=== PATIENT | female | born 1980 | race Caucasian/White ===

== ENCOUNTER → 2023-07-12 12:37 | Outpatient (REF) | payer BC, SELFPAY | LOC: WDC 12:37 | PROVIDERS: ATTENDING PHYSICIAN Obstetrics & Gynecology Gynecology; FAMILY PHYSICIAN Nurse Practitioner Adult Health | DX: Z12.31 Encounter for screening mammogram for malignant neoplasm of breast (principal) | CPT/HCPCS: 77063; 77067 ==

== ENCOUNTER → 2024-08-24 19:04 | Outpatient (REF) | payer BC, SELFPAY | LOC: WDC 19:04 | PROVIDERS: ATTENDING PHYSICIAN Obstetrics & Gynecology Gynecology; FAMILY PHYSICIAN Nurse Practitioner Adult Health | DX: Z12.39 Encounter for other screening for malignant neoplasm of breast (principal); Z12.31 Encounter for screening mammogram for malignant neoplasm of breast | CPT/HCPCS: 77063; 77067 ==

== ENCOUNTER 2024-11-06 06:02 | Day surgery (SDC) | payer BC, SELFPAY ==
--- NOTE | 2024-11-05 10:58 | HP.FOC2 ---
Focused History & Physical
Chief Complaint
HPI:
Chief Complaint: Abdominal pain and gallstones
HPI / Indication for Planned Procedure: Patient is a 44-year-old female recently seen in outpatient surgical consultation for evaluation of gallstones in the setting of acute abdominal pain prompting emergency department evaluation at an outside
hospital 06/24/2024. She was visiting friends in [place] when she awoke with bandlike epigastric abdominal pain rating towards her back. She was found to have gallstones and mildly elevated LFTs. She has had 1 mild recurrent episodes since. CT
imaging confirmed prominent gallbladder with large stone in the gallbladder body down towards the neck measuring over 2.5 cm in diameter.
After discussions regarding treatment options patient presents for cholecystectomy
Relevant Past Medical History: Other (History of Lyme's disease, seasonal allergies, depression/anxiety, obesity on Wegovy)
Relevant Social History: Negative
Relevant Family History: Negative
Relevant Past Surgical History: Positive for (Tonsils, abdominoplasty)
Review of Systems
Review of Pertinent Systems: All Systems Negative
Medication
See Medication form for detailed medications: Yes
Medication List (including Herbals & OTC):
Control 1 tab PO DAILY 10/30/24
duloxetine 60 mg capsule,delayed release 60 mg PO DAILY 10/30/24
fexofenadine 60 mg tablet 60 mg PO DAILY 10/30/24
fiber 1 dose PO DAILY 10/30/24
semaglutide (weight loss) 2.4 mg/0.75 mL subcutaneous pen injector (Wegovy) 2.4 mg SC QWEEK 10/30/24
Medications Reviewed: Yes
Allergies and Reactions
Patient has Allergies: Yes
Noted Allergies and Reactions:
Allergy/AdvReac Type Severity Reaction Status Date / Time
latex Allergy skin Verified 10/30/24 13:33
irritation
Penicillins Allergy can't Verified 10/30/24 13:33
breath,
rash
Pertinent Physical Exam
All Other Systems: Negative
Head/Neck: Normal
Lungs: Normal
Heart: Normal
Abdomen: Normal
Extremities: Normal
Neurological: Normal
Diagnosis / Assessment
44-year-old female with history of symptomatic cholelithiasis/biliary colic presenting for cholecystectomy
Plan / Procedure
Laparoscopic cholecystectomy with cholangiogram
Anesthesia/Sedation to be done by Anesthesia Provider: Yes
[2024-11-06] VITALS (11 sets, daily range): BP systolic 110–138; BP diastolic 71–83; BMI 30.1
[2024-11-06] MEDS: TYLENOL 1000 MG PO (06:33)
--- NOTE | 2024-11-06 06:45 | W.SUR.PREOP ---
Pre-Operative Surgical Note
-
I have examined this patient prior to the performance of the scheduled procedure.
The patient's condition is unchanged from the time of the current History and
Physical and the patient is able to undergo the scheduled procedure.
[2024-11-06] MEDS: NORMOSOL-R/PLASMALYTE-A 1000 IV (06:46)
--- NOTE | 2024-11-06 08:33 | W.IMMPOSTOP ---
Addendum entered and electronically signed by Praveen Marks MD 11/06/24 08:54:
#[id number]
Original Note:
Surgical Immed Post Op Note
-
Primary Surgeon: Praveen Marks MD
Assisting Surgeon: Linda Walls PA-c
Pre-op Diagnosis: Symptomatic cholelithiasis
Post-op Diagnosis: Symptomatic cholelithiasis, possible choledocholithiasis
Procedure Performed: Laparoscopic cholecystectomy with transcystic common bile duct exploration
Anesthesia Type: GETA +0.25% Marcaine
Specimen / Cultures: Gallbladder with stones
Estimated Blood Loss: 4 mL
Complications: None immediate
Operative Findings: Physiologically distended gallbladder with filmy omental adhesions suggestive of chronic calculus cholecystitis. Large gallstone with additional numerous small stones. Intraoperative cholangiogram with initial imaging
suggestive of possible distal common bile duct stone and no filling of the duodenum. Through a transcystic approach with fluoroscopic guidance the cholangiocatheter was advanced and passed through the ampulla with multiple passes and flushing
maneuvers as well as administration of glucagon by anesthesia. Subsequent cholangiogram with free flow of contrast and normal tapering at the ampulla. Numerous small stones were extracted from cystic duct prior to cholangiography and 1 more
moderate-sized stone was extracted after cholangiography. Gallbladder otherwise removed off the liver bed intact and extracted at the epigastric port site.
The assistance of Linda Walls PA-C was required due to the complexity of the procedure. During the procedure Linda Walls PA-C assisted with port placement, retraction of the gallbladder and managing the laparoscope, and closure of the surgical
incision sites. I was present for the entirety of the operative procedure.
[2024-11-06] MEDS: DILAUDID 0.25 MG IV ×3 (08:53→09:16)
[2024-11-06] MEDS: ROXICODONE 5 MG PO (10:47)
== END 2024-11-06 12:06 | disposition home or self-care (01) ==
LOC: SDS 06:02
PROVIDERS: ATTENDING PHYSICIAN Surgery
DX: K80.10 Calculus of gallbladder with chronic cholecystitis without obstruction (principal); D13.1 Benign neoplasm of stomach; K82.8 Other specified diseases of gallbladder; K66.0 Peritoneal adhesions (postprocedural) (postinfection)
CPT/HCPCS: 47563; 74300; 76000; 88304; A4300

== ENCOUNTER 2025-01-22 06:16 | Day surgery (SDC) | payer BC, SELFPAY | END 2025-01-22 10:58 | disposition home or self-care (01) | LOC: GI 06:16 | PROVIDERS: ATTENDING PHYSICIAN Internal Medicine | DX: Z12.11 Encounter for screening for malignant neoplasm of colon (principal); K64.9 Unspecified hemorrhoids; K63.5 Polyp of colon | CPT/HCPCS: 45380; 88305 ==